=== PATIENT | female | born 1990 | race Caucasian/White ===

== ENCOUNTER → 2023-05-14 | Outpatient (CLI) | payer BC, SELFPAY ==
[2023-05-14 12:24] LABS: Absolute Lymphocyte Count 1.87 X10^3/uL (0.83-4.51); Absolute Neutrophil Count 3.3 X10^3/uL (2.0-7.7); Basophil# 0.03 X10^3/uL; Basophil% 0.5 % (0-1); Eosinophil# 0.13 X10^3/uL; Eosinophils% 2.2 % (0-5); Hematocrit 42.3 % (37-47); Hemoglobin 13.7 g/dL (12.0-15.0); Lymphocyte # 1.87 X10^3/ul (0.83-4.51); Lymphocyte % 32.4 % (19-41); Mean Corp Hgb Conc 32.4 g/dL (32-36); Mean Corpuscular Hgb 29.7 pg (27.0-32.0); Mean Corpuscular Volume 91.6 fL (81-99); Mean Platelet Vol. 10.2 fl (6.2-12.0); Monocyte# 0.44 X10^3/uL; Monocyte% 7.6 % (0-10); NRBC Flagged by Analyzer 0 % (0-5); Neutrophil # 3.29 X10^3/uL (2.7-7.7); Platelet Count 254 K/mm3 (150-450); RBC Distribution Width CV 12.4 % (11.6-14.6); RBC Distribution Width SD 40.7 fl (35.1-43.9); Red Blood Count 4.62 M/mm3 (4.2-5.4); White Blood Count 5.8 K/mm3 (4.4-11.0)
[2023-05-14 12:45] LABS: Hemoglobin A1c 4.6 % (3.8-5.6)
[2023-05-14 13:08] LABS: ALB/GLOB Ratio 1.4 RATIO (0.9-2.4); AST(SGOT) 11 U/L (15-37); Alanine Aminotransfer ALT/SGPT 21 U/L (13-56); Albumin, Serum 4.4 g/dL (3.2-5.0); Alkaline Phosphatase 57 U/L (45-117); Anion Gap 6 (5-15); BUN 18 mg/dL (7-18); BUN/Creat Ratio 27.6 RATIO (10-20); CRP, High Sensitivity Cardiac 0.49 mg/L; Calcium,Total 9.7 mg/dL (8.5-10.1); Chloride 108 mmol/L (98-107); Cholesterol 153 mg/dL (200); Creatinine, Serum 0.65 mg/dL (0.55-1.02); EST Glomerular Filtration Rate 110 mL/min (>60); Est Glom Filt Rate - Afr Amer 133 mL/min (>60); Globulin 3.2 g/dL (2.2-4.2); Glucose 81 mg/dL (74-106); High Density Lipoprotein 71 mg/dL; Potassium 4.3 mmol/L (3.5-5.1); Protein, Total 7.6 g/dL (6.4-8.2); Sodium Level 139 mmol/L (136-145); Thyroid Stim Hormone (TSH) 1.48 uIU/mL (0.358-3.74); Triglycerides 45 mg/dL; Very Low Density Lipoprotein 9 mg/dL (5-40)
== END | disposition home or self-care (01) ==
LOC: MFPLAB 10:13
PROVIDERS: PCP Family Medicine; Visit Provider Family Medicine
DX: Z00.00 Encounter for general adult medical examination without abnormal findings (principal); Z13.220 Encounter for screening for lipoid disorders; Z82.49 Family history of ischemic heart disease and other diseases of the circulatory system; Z13.0 Encounter for screening for diseases of the blood and blood-forming organs and certain disorders involving the immune mechanism; Z13.29 Encounter for screening for other suspected endocrine disorder; Z13.1 Encounter for screening for diabetes mellitus
CPT/HCPCS: 36415; 80053; 80061; 83036; 84443; 85025; 86141

== ENCOUNTER 2025-01-29 17:18 | Emergency (ER) | payer BC, SELFPAY ==
[2025-01-29] VITALS (13 sets, daily range): BP systolic 103–149; BP diastolic 77–87; PULSE 75–109; RESP 12–24; TEMP 36.6–36.9; O2SAT 98–100; BMI 20.1
--- NOTE | 2025-01-29 18:13 | EDS_ITS ---
HPI History of Present Illness Chief Complaint: Chest Pain Informant: patient Onset/Context/Timing Onset: Days Activity at onset: gradual Timing: Intermittent Quality: Positive for - (Pinching) Location: Left Chest and - (Left scapula and left arm) Worsened By: Nothing Relieved By: Nothing Associated Symptoms: Positive for Palpitations; Negative for Nausea, Vomiting, Diaphoresis, Dyspnea, Cough, Fever, Lightheadedness or Acid Reflux Narrative Narrative: Patient presents with chest pain that is being getting worse over the past couple days. Patient describes it as a pinching sensation. Patient states it comes and goes. Patient states it radiates into her left shoulder and left arm. Patient states nothing makes it worse and nothing makes it better. Patient admits to some palpitations. Patient denies any nausea or vomiting. Patient denies any shortness of breath or cough. Patient denies any fevers or chills. Patient is concerned because she has a family history of father who had an KS in his 40s. CVD Risk Factors: Positive for Family History 1' </=55; Negative for Hypertension, Diabetes, Hypercholesterolemia or Smoking PE Risk Factors: Negative for Recent Travel/Surgery, Recent Immobilization, Prior DVT or PE, Cancer or OCP + Smoking + >/=35 PFSH PFSH Medical History no medical history no medical history Allergy/AdvReac Type Severity Reaction Status Date / Time No Known Allergies Allergy Verified 01/29/25 17:20 Surgical History no surgical history no surgical history Social History Smoking Status: Never smoker [facility] ED Constitutional Constitutional ED: Denies chills or fever(s) Eyes Eyes: Denies blurry vision or change in vision ENT ENT ED: Denies rhinorrhea or sore throat Cardiovascular Cardiovascular: Reports chest pain and palpitations Respiratory/Chest Respiratory/Chest: Denies cough or dyspnea Gastrointestinal Gastrointestinal: Denies nausea or vomiting Genitourinary Genitourinary ED: Denies dysuria or hematuria Musculoskeletal Musculoskeletal: Reports back pain; Denies neck pain Integumentary Denies abscess or rash Neurologic Neurologic: Denies headache(s) or weakness Allergic/Immunologic Allergic/Immunologic ED: Denies mouth swelling or urticaria EXAM Physical Exam Const Vital Signs: 01/29/25 17:19 01/29/25 17:51 01/29/25 18:00 Temperature 98.4 F Temperature Source Temporal Pulse Rate 109 H 83 75 Respiratory Rate 16 12 15 Blood Pressure 149/82 H 103/78 Blood Pressure Mean 104 88 Pulse Ox 100 100 100 Oxygen Delivery Method Room Air Room Air 01/29/25 18:15 01/29/25 18:19 01/29/25 18:30 Temperature Temperature Source Pulse Rate 86 77 Respiratory Rate 24 H 12 Blood Pressure 111/87 H Blood Pressure Mean 96 Pulse Ox 99 100 Oxygen Delivery Method Room Air Room Air 01/29/25 18:45 01/29/25 19:00 01/29/25 19:00 Temperature Temperature Source Pulse Rate 84 89 89 Respiratory Rate 16 14 14 Blood Pressure 119/86 H Blood Pressure Mean 96 Pulse Ox 100 98 Oxygen Delivery Method Room Air 01/29/25 19:15 01/29/25 19:38 01/29/25 19:45 Temperature Temperature Source Pulse Rate 90 88 89 Respiratory Rate 12 14 12 Blood Pressure Blood Pressure Mean Pulse Ox 100 100 99 Oxygen Delivery Method 01/29/25 20:00 01/29/25 21:00 Temperature Temperature Source Pulse Rate 79 83 Respiratory Rate 12 12 Blood Pressure 112/82 H 107/77 Blood Pressure Mean 92 87 Pulse Ox 98 100 Oxygen Delivery Method Room Air Positive well nourished and well developed Constitutional Narrative: BMI 20.1 General Appearance ED: well developed and NAD HEENT Reports moist mucous membranes Neck supple and no JVD Chest Wall palpation of chest normal Resp normal respiratory effort and clear to auscultation bilaterally Cardio regular rate and regular rhythm GI soft to palpation, non-tender and non-distended Neuro oriented x3, CN's II-XII intact bilaterally and no sensory deficits noted Sensorium / Orientation: awake and alert Motor Exam: strength 5/5 throughout Psych mental status grossly normal Heart Score History: Slightly/Non-Suspicious ECG: Normal Age: </= 45 years Risk Factors: 1 or 2 Risk Factors Troponin: </= Normal Limit Score: 1 MDM MDM MDM Narrative Medical decision making narrative: Differential diagnosis includes cardiac dysrhythmia, cardiac ischemia, pneumonia, bronchitis, pneumothorax, electrolyte abnormality, gastroesophageal reflux disease, and anxiety. EKG will be obtained to assess for cardiac dysrhythmia and cardiac ischemia. Chest x-ray will be obtained to assess for pneumonia and bronchitis and pneumothorax. CBC will be obtained to assess for leukocytosis and anemia. Basic metabolic profile will be obtained to assess for electrolyte abnormality and renal function. High-sensitivity troponin will be obtained to assess for cardiac ischemia. 2-hour repeat high-sensitivity troponin will be obtained to assess for ongoing cardiac ischemia. Lab Data Attestation: I reviewed the patient's lab results. Lab results narrative: CBC was reviewed and was within normal limits. Basic metabolic profile was reviewed. Potassium is slightly low at 3.2. The remainder is within normal limits. Initial high-sensitivity troponin was reviewed and was less than 6. 2- hour repeat high-sensitivity troponin was reviewed and was less than 6. Labs: Laboratory Results - last 24 hr 01/29/25 01/29/25 17:50 20:17 WBC 6.3 RBC 4.49 Hgb 13.6 Hct 39.9 MCV 88.9 MCH 30.3 MCHC 34.1 RDW Std Deviation 40.0 RDW Coeff of Toby 12.3 Plt Count 255 MPV 9.7 Immature Gran % (Auto) 0.200 Neut % (Auto) 52.2 Lymph % (Auto) 37.5 [place] % (Auto) 8.0 Eos % (Auto) 1.6 Baso % (Auto) 0.5 Absolute Neuts (auto) 3.3 Absolute Lymphs (auto) 2.35 Nucleated RBC % 0 Sodium 140 Potassium 3.2 L Chloride 105 Carbon Dioxide 19.9 L Anion Gap 15 BUN 12 Creatinine 0.69 L Estim Creat Clear Calc 88.78 Est GFR (MDRD) Non-Af 115 BUN/Creatinine Ratio 18.0 Glucose 102 H Calcium 9.4 Troponin T High Sens < 6 Troponin T Hi Sens 2 Hr < 6 Radiography Chest X-Ray - ED: 1 View, Read by ED Physician, Read by Radiologist and No Acute Disease Diagnostic Testing: Clinical Impression(s) from Imaging Studies Chest X-Ray 01/29/25 18:20 IMPRESSION: No Acute Findings. Reading Location: [facility] Portable 1 view chest x-ray was obtained. On my independent interpretation, lung coronel are clear. There is normal cardiac silhouette. Bony thorax is normal. There is no acute process noted. Radiologist also interpreted the x- ray and agrees. EKG Initial EKG: Attestation: I personally reviewed and interpreted this EKG as follows: Interpretation: Sinus Rhythm and No Acute Injury Pattern Comments: EKG was obtained. On my independent interpretation, it showed a normal sinus rhythm with a rate of 80. [place] interval, QRS interval, and QTc i ntervals were all normal. [place] was normal. There are no acute ST or T wave changes. Prior EKG tracings: not available for review Prior: No Prior Treatment and Re-Evaluation :: Patient was given aspirin here. Patient was feeling better evaluation. Patient was advised of her findings. Patient has a HEART score of 1. Patient was advised that this is low risk for acute cardiac event. Patient was instructed to take Tylenol or ibuprofen as needed for pain. Patient was instructed to follow-up with her primary care physician in 5 to 7 days. Patient understood and was agreeable with the plan. All questions were answered. Discharge Plan Triage Chief Complaint: Chest Pain ED Provider: Bubba De Anda Dx/Rx/DC Orders Clinical Impression: Chest pain of uncertain etiology, Elevated blood pressure reading Instructions: ED Chest Pain, Uncertain Cause Primary Care Provider: Pamella Bowman Referrals: Pamella Bowman MD [Primary Care Provider] - 5-7 Days Print Language: [place] Citizen Disposition Disposition: Home, Self Care
--- NOTE | 2025-01-29 18:13 | EKG12_ITS ---
Test Reason : CP Blood Pressure : */* mmHG Vent. Rate : 80 BPM Atrial Rate : 80 BPM P-R Int : 142 ms QRS Dur : 92 ms QT Int : 388 ms P-R-T Axes : 80 83 79 degrees QTcB Int : 447 ms Normal sinus rhythm with sinus arrhythmia Normal ECG Confirmed by ALVINO CHAUDHRY, WYATT ([id number]), development editor NICKY ABREU ([id number]) on 01/30/2025 8:10:37 AM Referred By: Confirmed By: WYATT DE OLIVEIRA MD
--- NOTE | 2025-01-29 18:20 | RAD_ITS ---
PROCEDURE: CHEST 1 VIEW (PORTABLE) 01/29/2025 REASON FOR EXAM: CHEST PAIN TECHNIQUE: Frontal view of the chest. COMPARISON: None FINDINGS: Hardware: None Heart: The heart size is normal. Lungs: No significant change in the appearance of the lungs. Bones: The bones are unremarkable. Other: RAD/Chest 1 View (Portable) IMPRESSION: No Acute Findings. Reading Location: [facility]
[2025-01-29 18:23] LABS: Absolute Lymphocyte Count 2.35 X10^3/uL (0.83-4.51); Absolute Neutrophil Count 3.3 X10^3/uL (2.0-7.7); Basophil# 0.03 X10^3/uL; Basophil% 0.5 % (0-1); Eosinophils% 1.6 % (0-5); Hematocrit 39.9 % (37-47); Hemoglobin 13.6 g/dL (12.0-15.0); Lymphocyte # 2.35 X10^3/ul (0.83-4.51); Lymphocyte % 37.5 % (19-41); Mean Corp Hgb Conc 34.1 g/dL (32-36); Mean Corpuscular Hgb 30.3 pg (27.0-32.0); Mean Corpuscular Volume 88.9 fL (81-99); Mean Platelet Vol. 9.7 fl (6.2-12.0); NRBC Flagged by Analyzer 0 % (0-5); Neutrophil # 3.27 X10^3/uL (2.7-7.7); Neutrophil % 52.2 % (47-70); Platelet Count 255 K/mm3 (150-450); RBC Distribution Width CV 12.3 % (11.6-14.6); Red Blood Count 4.49 M/mm3 (4.2-5.4); White Blood Count 6.3 K/mm3 (4.4-11.0)
[2025-01-29] MEDS: Aspirin 81 MG TAB.CHEW 324 MG PO (18:25)
[2025-01-29 18:53] LABS: Anion Gap 15 (5-15); BUN 12 mg/dL (4-19); Calcium,Total 9.4 mg/dL (7.6-11.0); Carbon Dioxide 19.9 mmol/L (21.0-32.0); Chloride 105 mmol/L (98-108); Creatinine, Serum 0.69 mg/dL (0.70-1.20); EST Glomerular Filtration Rate 115 (>60); Estimated Creatinine Clearance 88.78 ml/min (50-250); Glucose 102 mg/dL (70-99); Potassium 3.2 mmol/L (3.3-5.1); Sodium Level 140 mmol/L (133-145); Troponin T High Sensitivity < 6 ng/L (<=14)
[2025-01-29 20:55] LABS: Troponin T High Sens 2 HR < 6 ng/L (<=14)
== END 2025-01-29 21:19 | disposition home or self-care (01) ==
PROVIDERS: Emergency Provider Emergency Medicine; PCP Family Medicine; Visit Provider Emergency Medicine
DX: R07.9 Chest pain, unspecified (principal); R03.0 Elevated blood-pressure reading, without diagnosis of hypertension; R00.2 Palpitations; M79.602 Pain in left arm; M25.512 Pain in left shoulder; M54.9 Dorsalgia, unspecified; Z82.49 Family history of ischemic heart disease and other diseases of the circulatory system
CPT/HCPCS: 71045; 80048; 84484; 85025; 93005; 99284; A4216

== ENCOUNTER → 2025-02-09 | Outpatient (CLI) | payer BC, SELFPAY ==
[2025-02-09 10:52] LABS: Anion Gap 11 (5-15); BUN 17 mg/dL (4-19); BUN/Creat Ratio 24.2 RATIO (10-20); Calcium,Total 9.8 mg/dL (7.6-11.0); Carbon Dioxide 25.4 mmol/L (21.0-32.0); Chloride 103 mmol/L (98-108); Cholesterol 168 mg/dL (<=200); Creatinine, Serum 0.72 mg/dL (0.70-1.20); EST Glomerular Filtration Rate 112 (>60); Glucose 90 mg/dL (70-99); High Density Lipoprotein 70 mg/dL; Low Density Lipoprotein Calc. 90 mg/dL; Potassium 4.3 mmol/L (3.3-5.1); Sodium Level 140 mmol/L (133-145); Triglycerides 38 mg/dL; Very Low Density Lipoprotein 8 mg/dL (5-40)
== END | disposition home or self-care (01) ==
LOC: MTLAB 08:44
PROVIDERS: PCP Family Medicine; Referring Provider Nurse Practitioner Family; Visit Provider Nurse Practitioner Family
DX: Z13.1 Encounter for screening for diabetes mellitus (principal); Z13.220 Encounter for screening for lipoid disorders
CPT/HCPCS: 36415; 80048; 80061

== ENCOUNTER → 2025-10-21 | Outpatient (CLI) | payer BC, SELFPAY ==
--- OUTSIDE RECORDS SUMMARY | 2025-10-21 12:04 | XMS RPT_ITS | CCD ---
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 Bubba De Anda DO Emergency Provider Pamella Bowman MD Primary Care Provider Dr. Bubba De Anda DO Attending Provider Tian TURN OUT-C, Vandana Attending Provider [phone] Tian TURN OUT-C, Vandana Referring Provider [phone] Tian TURN OUT, Vandana Referring Unavailable Tian TURN OUT, Vandana Attending Unavailable Pamella Bowman Primary Care Unavailable Bubba De Anda Attending Unavailable Pamella Bowman Primary [facility] Unavailable Allergies Allergy Classification Reported Allergen(s) Allergy Type Date of Onset Reaction(s) Facility (1 source) Amoxicillin Drug Allergy 06-16-2025 [facility] Repository (1 source) Clavulanate Drug Allergy 06-16-2025 [facility] Repository Problems Problem Classification Problem Date Documented Da te Episodic/Chronic Nonspecific chest pain (3 sources) Chest pain; Translations: [Chest pain, unspecified] Onset: 06-15-2025 01-29-2025 Episodic Other circulatory disease (2 sources) Elevated blood pressure; Translations: [Elevated blood-pressure reading, without diagnosis of hypertension] 01-29-2025 Episodic Other screening for suspected conditions (not mental disorders or infectious disease) (1 source) Encounter for screening for diabetes mellitus; Translations: [Encounter for screening for diabetes mellitus] Onset: 06-16-2025 Episodic Results Test Name Value Interpretation Reference Range Facility Anion gap in Serum or Plasma Ordered By: Vandana Overton on 02-09-2025 Anion gap [Moles/Vol] 11 mmol/L - [facility] BUN/creatinine ratioOrdered By: Vandana Overton on 02-09-2025 Urea nitrogen/Creatinine [Mass ratio] 24.2 mg/mg High - [facility] Basic Metabolic Profile (BMP )on 02-09-2025 BUN/CRE 24.2 RATIO High -20 [facility] Comment on above: Performed By: #### L 500.2500, L500.4100 #### [facility] [address] [place], [address] Calcium [Mass/Vol] 9.8 mg/dL Normal 7.6-11.0 [facility] Comment on above: Performed By: #### L 500.2500, L500.4100 #### [facility] [address] [place], [address] Chloride [Moles/Vol] 103 mmol/L Normal 98-108 [facility] Comment on above: Performed By: #### L 500.2500, L500.4100 #### [facility] [address] [place], [address] CO2 [Moles/Vol] 25.4 mmol/L Normal 21.0-32.0 [facility] Comment on above: Performed By: #### L 500.2500, L500.4100 #### [facility] [address] [place], [address] Creatinine [Mass/Vol] 0.72 mg/dL Normal 0.70-1.20 [facility] Comment on above: Performed By: #### L 500.2500, L500.4100 #### [facility] [address] [place], [address] GAP 11 Normal 5-15 [facility] Comment on above: Performed By: #### L 500.2500, L500.4100 #### [facility] [address] [place], [address] GFR/1.73 sq M.predicted among non-blacks MDRD (S/P/Bld) [Vol rate/Area] 112 mL/min/{1.73_m2} Normal >60 [facility] Comment on above: Result Comment: mL/m in/1.73m2 CKD-EPI Creatinine Equation (2020) Performed By: #### L 500.2500, L500.4100 #### [facility] [address] [place], [address] Glucose [Mass/Vol] 90 mg/dL Normal 70-99 [facility] Comment on above: Performed By: #### L 500.2500, L500.4100 #### [facility] [address] [place], [address] Potassium [Moles/Vol] 4.3 mmol/L Normal 3.3-5.1 [facility] Comment on above: Performed By: #### L 500.2500, L500.4100 #### [facility] [address] [place], [address] Sodium [Moles/Vol] 140 mmol/L Normal 133-145 [facility] Comment on above: Performed By: #### L 500.2500, L500.4100 #### [facility] [address] [place], [address] Urea nitrogen [Mass/Vol] 17 mg/dL Normal 4-19 [facility] Comment on above: Performed By: #### L 500.2500, L500.4100 #### [facility] [address] [place], [address] Calculated very low density lipoprotein (VLDL) cholesterol measurementOrdered By: Vandana Overton on 02-09-2025 VLDL Cholesterol 8 mg/dL 5-40 [facility] Carbon dioxide, total [Moles /volume] in Central venous bloodOrdered By: Vandana Overton on 02-09-2025 CO2 [Moles/Vol] 25.4 mmol/L 21.0-32.0 [facility] Chloride assayOrdered By: Stefan Overton on 02-09-2025 Chloride [Moles/Vol] 103 mmol/L 98-108 [facility] GFR/1.73 sq M.predicted jessica g non-blacks MDRD (S/P/Bld) [Vol rate/Area]Ordered By: Vandana Overton on 02-09-2025 Estimated GFR (MDRD) Non-Af Amer 112 >60 [facility] Comment on above: mL/min/1.73m2 CKD-EP I Creatinine Equation (2020) LDL calc ser/plasOrdered By: Vandana Overton on 02-09-2025 LDL Cholesterol, Calculated 90 mg/dL [facility] Comment on above: Cfuiwiqeoc=948-505 m g/dL & Higher Pkez=438 mg/dL or greater Lipid Profileon 02-09-2025 CHOL:HDL 2.40 Normal [facility] Comment on above: Performed By: #### L 500.2500, L500.4100 #### [facility] [address] [place], [address] Cholesterol [Mass/Vol] 168 mg/dL Normal <=200 [facility] Comment on above: Result Comment: Chol esterol level, Desirable <200 mg/dL Borderline high cholesterol 200-239 mg/dL High cholesterol >=240 mg/dL Recommendations of the NCEP Adult Treatment Panel for the following risk-cutoff thresholds for the [place] population. Performed By: #### L 500.2500, L500.4100 #### [facility] [address] [place], [address] Cholesterol in HDL [Mass/Vol] 70 mg/dL Normal [facility] Comment on above: Result Comment: Concepcion onal Cholesterol Education Program (NCEP) guidelines: <40 mg/dL: Low HDL-cholesterol (major risk factor for CHD) >= 60 mg/dL: High HDL-cholesterol (negative risk factor for CHD) HDL-cholesterol is affected by a number of factors, e.g. smoking, exercise, hormones, sex and age. Performed By: #### L 500.2500, L500.4100 #### [facility] [address] [place], [place], [id number] (613) Cholesterol in LDL [Mass/Vol] 90 mg/dL Normal [facility] Comment on above: Result Comment: Bord harjxz=641-317 mg/dL Higher Exzz=049 mg/dL or greater Performed By: #### L 500.2500, L500.4100 #### [facility] [address] [place], [address] Cholesterol in VLDL [Mass/Vol] 8 mg/dL Normal 5-40 [facility] Comment on above: Performed By: #### L 500.2500, L500.4100 #### [facility] [address] [place], [address] Triglyceride [Mass/Vol] 38 mg/dL Normal [facility] Comment on above: Result Comment: The drugs N-Acetylcysteine and Metamizole may falsely depress this assay. Normal range: <150 mg/dL Borderline High: 150-199 mg/dL High: 200-499 mg/dL Very High: >500 mg/dL Performed By: #### L 500.2500, L500.4100 #### [facility] [address] [place], [address] Potassium (Unsp spec) [Mass/ Vol]Ordered By: Vandana Overton on 02-09-2025 Potassium [Moles/Vol] 4.3 mmol/L 3.3-5.1 [facility] Screening total cholesterol/ high density lipoprotein (HDL) cholesterol ratioOrdered By: Vandana Overton on 02-09-2025 Cholesterol.total/Cholest lexie in HDL [Mass ratio] 2.40 {ratio} [facility] Serum creatinine measurement (mass/volume)Ordered By: Vandana Overton on 02-09-2025 Creatinine [Mass/Vol] 0.72 mg/dL 0.70-1.20 [facility] Serum glucose measurement (m ass/volume)Ordered By: Vandana Overton on 02-09-2025 Glucose [Mass/Vol] 90 mg/dL 70-99 [facility] Serum or plasma calcium kimi urement (mass/volume)Ordered By: Vandana Overton on 02-09-2025 Calcium [Mass/Vol] 9.8 mg/dL 7.6-11.0 [facility] Serum or plasma cholesterol in HDL measurement (mass/volume)Ordered By: Vandana Overton on 02-09-2025 Cholesterol in HDL [Mass/Vol] 70 mg/dL >40 [facility] Comment on above: National Cholesterol Education Program (NCEP) guidelines:<40 mg/dL: Low HDL-cholesterol (major risk factor for CHD)>= 60 mg/dL: High HDL-cholesterol (negative risk factor for CHD)HDL-cholesterol is affected by a number of factors, e.g. smoking, exercise, hormones, sex and age. Serum or plasma cholesterol measurement (mass/volume)Ordered By: Vandana Overton on 02-09-2025 Cholesterol [Mass/Vol] 168 mg/dL <201 [facility] Comment on above: Cholesterol level, D esirable <200 mg/dLBorderline high cholesterol 200-239 mg/dLHigh cholesterol >=240 mg/dLRecommendations of the NCEP Adult Treatment Panel for the following risk-cutoff thresholds for the [place] population. Serum or plasma urea nitroge n measurement (mass/volume)Ordered By: Vandana Overton on 02-09-2025 Urea nitrogen [Mass/Vol] 17 mg/dL 4-19 [facility] Sodium levelOrdered By: Vandana Overton on 02-09-2025 Sodium [Moles/Vol] 140 mmol/L 133-145 [facility] Triglycerides measurementOrd ered By: Vandana Overton on 02-09-2025 Triglyceride [Mass/Vol] 38 mg/dL <199 [facility] Comment on above: The drugs N-Acetylcy steine and Metamizole may falsely depress this assay. Normal range: <150 mg/dLBorderline High: 150-199 mg/dLHigh: 200-499 mg/dLVery High: >500 mg/dL 12 Lead EKGon 01-29-2025 12 Lead EKG [facility] Cardiovascular Services [address] [place] [address] 12 Lead EKG 01/29/25 1632 MR#: [id number] Acct: [id number] Name: MEAGAN CARLTON Rep #: [id number] : 1990 34 From: Misael De Oliveira MD Attending Dr: Status: DEP ER Ordering Dr: Bubba De Anda DO Date: 01/29/25 Location: ED Sex: F C Admitted: Test Reason : CP Blood Pressure : */* mmHG Vent. Rate : 80 BPM Atrial Rate : 80 BPM P-R Int : 142 ms QRS Dur : 92 ms QT Int : 388 ms P-R-T Axes : 80 83 79 degrees QTcB Int : 447 ms Normal sinus rhythm with sinus arrhythmia Normal ECG Confirmed by MISAEL DE OLIVEIRA MD ([id number]), research editor NICKY ABREU ([id number]) on 01/30/2025 8:10:37 AM Referred By: Confirmed By: MISAEL DE OLIVEIRA MD 01/30/25 0810 Date Misael De Oliveira MD CC: Dr. Pamella Bowman MD; Dr. Bubba De Anda DO Signed Normal [facility] Absolute neutrophil countOrd ered By: Bubba De Anda on 01-29-2025 Neutrophils (Bld) [#/Vol] 3.3 10*3/uL 2.0-7.7 [facility] Anion gap in Serum or Plasma Ordered By: Bubba De Anda on 01-29-2025 Anion gap [Moles/Vol] 15 mmol/L 03-26 [facility] BUN/creatinine ratioOrdered By: Bubba De Anda on 01-29-2025 Urea nitrogen/Creatinine [Mass ratio] 18.0 mg/mg 08-31 [facility] Basic Metabolic Profile (BMP )on 01-29-2025 BUN/CRE 18.0 RATIO Normal 08-31 [facility] Comment on above: Performed By: #### L 100.0100, L500.2500, L501.4021 #### [facility] [address] [place], [address] Calcium [Mass/Vol] 9.4 mg/dL Normal 7.6-11.0 [facility] Comment on above: Performed By: #### L 100.0100, L500.2500, L501.4021 #### [facility] [address] [place], [address] Chloride [Moles/Vol] 105 mmol/L Normal 98-108 [facility] Comment on above: Performed By: #### L 100.0100, L500.2500, L501.4021 #### [facility] [address] [place], [address] CO2 [Moles/Vol] 19.9 mmol/L Low 21.0-32.0 [facility] Comment on above: Performed By: #### L 100.0100, L500.2500, L501.4021 #### [facility] [address] [place], [address] Creatinine [Mass/Vol] 0.69 mg/dL Low 0.70-1.20 [facility] Comment on above: Performed By: #### L 100.0100, L500.2500, L501.4021 #### [facility] [address] [place], [address] ECRCL 88.78 ml/min Normal 50-250 [facility] Comment on above: Performed By: #### L 100.0100, L500.2500, L501.4021 #### [facility] [address] [place], [address] GAP 15 Normal 5-15 [facility] Comment on above: Performed By: #### L 100.0100, L500.2500, L501.4021 #### [facility] [address] [place], [address] GFR/1.73 sq M.predicted among non-blacks MDRD (S/P/Bld) [Vol rate/Area] 115 mL/min/{1.73_m2} Normal >60 [facility] Comment on above: Result Comment: mL/m in/1.73m2 CKD-EPI Creatinine Equation (2020) Performed By: #### L 100.0100, L500.2500, L501.4021 #### [facility] [address] [place], [address] Glucose [Mass/Vol] 102 mg/dL High 70-99 [facility] Comment on above: Performed By: #### L 100.0100, L500.2500, L501.4021 #### [facility] [address] [place], [address] Potassium [Moles/Vol] 3.2 mmol/L Low 3.3-5.1 [facility] Comment on above: Performed By: #### L 100.0100, L500.2500, L501.4021 #### [facility] [address] [place], [address] Sodium [Moles/Vol] 140 mmol/L Normal 133-145 [facility] Comment on above: Performed By: #### L 100.0100, L500.2500, L501.4021 #### [facility] [address] [place], [address] Urea nitrogen [Mass/Vol] 12 mg/dL Normal 4-19 [facility] Comment on above: Performed By: #### L 100.0100, L500.2500, L501.4021 #### [facility] [address] [place], [address] Basophil percentageOrdered B y: Bubba De Anda on 01-29-2025 Basophils/100 WBC (Bld) 0.5 % 0-1 [facility] CBC W/Diff, Automatedon 03-2 0 Absolute Lymph 2.35 X10 3/uL Normal 0.83-4.51 [facility] Comment on above: Performed By: #### L 100.0100, L500.2500, L501.4021 #### [facility] [address] [place], [address] Absolute Neut 3.3 X10 3/uL Normal 2.0-7.7 [facility] Comment on above: Performed By: #### L 100.0100, L500.2500, L501.4021 #### [facility] [address] [place], [address] Basophils/100 WBC (Bld) 0.5 % Normal 0-1 [facility] Comment on above: Performed By: #### L 100.0100, L500.2500, L501.4021 #### [facility] [address] [place], [address] Eosinophils/100 WBC (Bld) 1.6 % Normal 0-5 [facility] Comment on above: Performed By: #### L 100.0100, L500.2500, L501.4021 #### [facility] [address] [place], [address] Erythrocyte distribution width (RBC) [Ratio] 12.3 % Normal 11.6-14.6 [facility] Comment on above: Performed By: #### L 100.0100, L500.2500, L501.4021 #### [facility] [address] [place], [address] Hematocrit (Bld) [Volume fraction] 39.9 % Normal 37-47 [facility] Comment on above: Performed By: #### L 100.0100, L500.2500, L501.4021 #### [facility] [address] [place], [address] Hemoglobin (Bld) [Mass/Vol] 13.6 g/dL Normal 12.0-15.0 [facility] Comment on above: Performed By: #### L 100.0100, L500.2500, L501.4021 #### [facility] [address] [place], [address] IG% 0.200 Normal 0.0-0.9 [facility] Comment on above: Result Comment: IG% - Immature Granulocytes (promyelocytes, myelocytes and metamyelocytes) > 1% indicates that a LEFT SHIFT is Present. Performed By: #### L 100.0100, L500.2500, L501.4021 #### [facility] [address] [place], [address] Lymphocytes/100 WBC (Bld) 37.5 % Normal 19-41 [facility] Comment on above: Performed By: #### L 100.0100, L500.2500, L501.4021 #### [facility] [address] [place], [address] MCH (RBC) [Entitic mass] 30.3 pg Normal 27.0-32.0 [facility] Comment on above: Performed By: #### L 100.0100, L500.2500, L501.4021 #### [facility] [address] [place], [address] MCHC (RBC) [Mass/Vol] 34.1 g/dL Normal 32-36 [facility] Comment on above: Performed By: #### L 100.0100, L500.2500, L501.4021 #### [facility] [address] [place], [address] MCV (RBC) [Entitic vol] 88.9 fL Normal 81-99 [facility] Comment on above: Performed By: #### L 100.0100, L500.2500, L501.4021 #### [facility] [address] [place], [address] Monocytes/100 WBC (Bld) 8.0 % Normal 0-10 [facility] Comment on above: Performed By: #### L 100.0100, L500.2500, L501.4021 #### [facility] [address] [place], [address] Neutrophils/100 WBC (Bld) 52.2 % Normal 47-70 [facility] Comment on above: Performed By: #### L 100.0100, L500.2500, L501.4021 #### [facility] [address] [place], [address] Nucleated RBC (Bld) [#/Vol] 0 10*3/uL Normal 0-5 [facility] Comment on above: Performed By: #### L 100.0100, L500.2500, L501.4021 #### [facility] [address] [place], [address] Platelet mean volume (Bld) [Entitic vol] 9.7 fL Normal 6.2-12.0 [facility] Comment on above: Performed By: #### L 100.0100, L500.2500, L501.4021 #### [facility] [address] [place], [address] Platelets (Bld) [#/Vol] 255 10*3/uL Normal 150-450 [facility] Comment on above: Performed By: #### L 100.0100, L500.2500, L501.4021 #### [facility] [address] [place], [address] RBC (Bld) [#/Vol] 4.49 10*6/uL Normal 4.2-5.4 [place] Comment on above: Performed By: #### L 100.0100, L500.2500, L501.4021 #### [facility] [address] [place], [address] RDW SD 40.0 fl Normal 35.1-43.9 [facility] Comment on above: Performed By: #### L 100.0100, L500.2500, L501.4021 #### [facility] [address] [place], [address] WBC (Bld) [#/Vol] 6.3 10*3/uL Normal 4.4-11.0 [facility] Comment on above: Performed By: #### L 100.0100, L500.2500, L501.4021 #### [facility] [address] [place], [address] Carbon dioxide, total [Moles /volume] in Central venous bloodOrdered By: Bubba De Anda on 01-29-2025 CO2 [Moles/Vol] 19.9 mmol/L Low 21.0-32.0 [facility] Chest 1 View (Portable)on Chest 1 View (Portable) [facility] Imaging Services [address] [place] [address] Chest 1 View (Portable) MR#: [id number] Acct: [id number] Name: MEAGAN CARLTON Rep #: [id number] : 1990 F 34 From: Rodrick burris MD PCP: Dr. Pamella Bowman MD Status: REG ER Study: Chest 1 View (Portable) Date of Exam: 01/29/25 Exam# [id number] Ordering Dr: Bubba De Anda DO PROCEDURE: CHEST 1 VIEW (PORTABLE) 01/29/2025 REASON FOR EXAM: CHEST PAIN TECHNIQUE: Frontal view of the chest. COMPARISON: None FINDINGS: Hardware: None Heart: The heart size is normal. Lungs: No significant change in the appearance of the lungs. Bones: The bones are unremarkable. Other: RAD/Chest 1 View (Portable) IMPRESSION: No Acute Findings. Reading Location: [facility] CC: Dr. Pamella Bowman MD; Dr. Bubba De Anda DO Animal Taxonomist: Signed Normal [facility] Chloride assayOrdered By: Stefan De Anda on 01-29-2025 Chloride [Moles/Vol] 105 mmol/L 98-108 [facility] Emergency Department Summary on 01-29-2025 Emergency Department Summary [facility] Medical Records Department [address] [place] [address] Emergency Department Summary 01/29/25 MR#: [id number] Acct: [id number] Name: MEAGAN CARLTON Rep #: [id number] : 1990 34 From: Bubba De Anda DO PCP: Dr. Pamella Bowman MD Status:DEP ER Location: ED HPI History of Present Illness Chief Complaint: Chest Pain Informant: patient Onset/Context/Timin g Onset: Days Activity at onset: gradual Timing: Intermittent Quality: Positive for - (Pinching) Location: Left Chest and - (Left scapula and left arm) Worsened By: Nothing Relieved By: Nothing Associated Symptoms: Positive for Palpitations; Negative for Nausea, Vomiting, Diaphoresis, Dyspnea, Cough, Fever, Lightheadedness or Acid Reflux Narrative Narrative: Patient presents with chest pain that is being getting worse over the past couple days. Patient describes it as a pinching sensation. Patient states it comes and goes. Patient states it radiates into her left shoulder and left arm. Patient states nothing makes it worse and nothing makes it better. Patient admits to some palpitations. Patient denies any nausea or vomiting. Patient denies any shortness of breath or cough. Patient denies any fevers or chills. Patient is concerned because she has a family history of father who had an NE in his 40s. CVD Risk Factors: Positive for Family History 1' Hypercholesterolemi a or Smoking PE Risk Factors: Negative for Recent Travel/Surgery, Recent Immobilization, Prior DVT or PE, Cancer or OCP + Smoking + >/=35 PFSH PFSH Medical History no medical history no medical history Allergy/AdvReac Type Severity Reaction Status Date / Time No Known Allergies Allergy Verified 01/29/25 17:20 Surgical History no surgical history no surgical history Social History Smoking Status: Never smoker ROS ROS ED Constitutional Constitutional ED: Denies chills or fever(s) Eyes Eyes: Denies blurry vision or change in vision ENT ENT ED: Denies rhinorrhea or sore throat Cardiovascular Cardiovascular: Reports chest pain and palpitations Respiratory/Chest Respiratory/Chest: Denies cough or dyspnea Gastrointestinal Gastrointestinal: Denies nausea or vomiting Genitourinary Genitourinary ED: Denies dysuria or hematuria Musculoskeletal Musculoskeletal: Reports back pain; Denies neck pain Integumentary Denies abscess or rash Neurologic Neurologic: Denies headache(s) or weakness Allergic/Immunologi c Allergic/Immunologi c ED: Denies mouth swelling or urticaria EXAM Physical Exam Const Vital Signs: 01/29/25 17:19 01/29/25 17:51 01/29/25 18:00 Temperature 98.4 F Temperature Source Temporal Pulse Rate 109 H 83 75 Respiratory Rate 16 12 15 Blood Pressure 149/82 H 103/78 Blood Pressure Mean 104 88 Pulse Ox 100 100 100 Oxygen Delivery Method Room Air Room Air 01/29/25 18:15 01/29/25 18:19 01/29/25 18:30 Temperature Temperature Source Pulse Rate 86 77 Respiratory Rate 24 H 12 Blood Pressure 111/87 H Blood Pressure Mean 96 Pulse Ox 99 100 Oxygen Delivery Method Room Air Room Air 01/29/25 18:45 01/29/25 19:00 01/29/25 19:00 Temperature Temperature Source Pulse Rate 84 89 89 Respiratory Rate 16 14 14 Blood Pressure 119/86 H Blood Pressure Mean 96 Pulse Ox 100 98 Oxygen Delivery Method Room Air 01/29/25 19:15 01/29/25 19:38 01/29/25 19:45 Temperature Temperature Source Pulse Rate 90 88 89 Respiratory Rate 12 14 12 Blood Pressure Blood Pressure Mean Pulse Ox 100 100 99 Oxygen Delivery Method 01/29/25 20:00 01/29/25 21:00 Temperature Temperature Source Pulse Rate 79 83 Respiratory Rate 12 12 Blood Pressure 112/82 H 107/77 Blood Pressure Mean 92 87 Pulse Ox 98 100 Oxygen Delivery Method Room Air Positive well nourished and well developed Constitutional Narrative: BMI 20.1 General Appearance ED: well developed and NAD HEENT Reports moist mucous membranes Neck supple and no JVD Chest Wall palpation of chest normal Resp normal respiratory effort and clear to auscultation bilaterally Cardio regular rate and regular rhythm GI soft to palpation, non-tender and non-distended Neuro oriented x3, CN's II-XII intact bilaterally and no sensory deficits noted Sensorium / Orientation: awake and alert Motor Exam: strength 5/5 throughout Psych mental status grossly normal Heart Score History: Slightly/Non-Suspic ious ECG: Normal Age: Risk Factors: 1 or 2 Risk Factors Troponin: Score: 1 MDM MDM MDM Narrative Medical decision making narrative: Differential diagnosis includes cardiac dysrhythmia, cardiac ischemia, pneumonia, (more content not included)... Normal [facility] Eosinophil percentageOrdered By: Bubba De Anda on 01-29-2025 Eosinophils/100 WBC (Bld) 1.6 % 0-5 [facility] Erythrocyte distribution wid th ratioOrdered By: Bubba De Anda on 01-29-2025 Erythrocyte distribution width (RBC) [Ratio] 12.3 % 11.6-14.6 [facility] Erythrocyte distribution wid th standard deviationOrdered By: Bubba De Anda on 01-29-2025 Erythrocyte distribution width (RBC) [Entitic vol] 40.0 fL 35.1-43.9 [facility] Estimation of creatinine nir aranceOrdered By: Bubba De Anda on 01-29-2025 Estimated Creatinine Clearance Calc 88.78 ml/min 50-250 [facility] GFR/1.73 sq M.predicted jessica g non-blacks MDRD (S/P/Bld) [Vol rate/Area]Ordered By: Bubba De Anda on 01-29-2025 Estimated GFR (MDRD) Non-Af Amer 115 >60 [facility] Comment on above: mL/min/1.73m2 CKD-EP I Creatinine Equation (2020) Hematocrit Auto (Bld) [Volum e fraction]Ordered By: Bubba De Anda on 01-29-2025 Hematocrit (Bld) [Volume fraction] 39.9 % 37-47 [facility] Hemoglobin measurementOrdere d By: Bubba De Anda on 01-29-2025 Hemoglobin (Bld) [Mass/Vol] 13.6 g/dL 12.0-15.0 [facility] Immature granulocytes/100 WB C Auto (Bld)Ordered By: Bubba De Anda on 01-29-2025 Immature granulocytes/100 WBC (Bld) 0.200 % 0.0-0.9 [facility] Comment on above: IG% - Immature Granu locytes (promyelocytes, myelocytes and metamyelocytes) > 1% indicates that a LEFT SHIFT is Present. L499.0042on 01-29-2025 Trop T High Sen < 6 Normal <=14 [facility] Comment on above: Performed By: #### L 499.0042 #### [facility] [address] [place], [place] [address], [address] L499.0043on 01-29-2025 Trop T High Sen Normal <=14 [facility] Comment on above: Result Comment: Canc elled via OM: Order cancelled - Patient discharged Performed By: #### L 499.0043 #### [facility] [address] [place], [address] L501.4021on 01-29-2025 Trop T High Sen < 6 Normal <=14 [facility] Comment on above: Performed By: #### L 100.0100, L500.2500, L501.4021 #### [facility] [address] [place], [address] Lymphocytes Auto (Unsp spec) [#/Vol]Ordered By: Bubba De Anda on 01-29-2025 Lymphocytes (Bld) [#/Vol] 2.35 10*3/uL 0.83-4.5 1 [facility] Lymphocytes/100 WBC Auto (Un sp spec)Ordered By: Bubba De Anda on 01-29-2025 Lymphocytes/100 WBC (Bld) 37.5 % 19-41 [facility] MCV (mean corpuscular volume ) determinationOrdered By: Bubba De Anda on 01-29-2025 MCV (RBC) [Entitic vol] 88.9 fL 81-99 [facility] Mean corpuscular hemoglobin (MCH) determinationOrdered By: Bubba De Anda on 01-29-2025 MCH (RBC) [Entitic mass] 30.3 pg 27.0-32.0 [facility] Mean corpuscular hemoglobin concentration (MCHC) determinationOrdered By: Bubba De Anda on 01-29-2025 MCHC (RBC) [Mass/Vol] 34.1 g/dL 32-36 [facility] Mean platelet volume determi nationOrdered By: Bubba De Anda on 01-29-2025 Platelet mean volume (Bld) [Entitic vol] 9.7 fL 6.2-12.0 [facility] Monocyte percentageOrdered B y: Bubba De Anda on 01-29-2025 Monocytes/100 WBC (Bld) 8.0 % 0-10 [facility] Neutrophil percentageOrdered By: Bubba De Anda on 01-29-2025 Neutrophils/100 WBC (Bld) 52.2 % 47-70 [facility] No Panel InformationOrdered By: Bubba De Anda on 01-29-2025 Troponin T High Sensitivity < 6 ng/L <14 [facility] Nucleated red blood cell per centageOrdered By: Bubba De Anda on 01-29-2025 Nucleated RBC/100 WBC (Bld) [Ratio] 0 % 0-5 [facility] Platelet countOrdered By: Stefan De Anda on 01-29-2025 Platelets (Bld) [#/Vol] 255 10*3/uL 150-450 [facility] Potassium (Unsp spec) [Mass/ Vol]Ordered By: Bubba De Anda on 01-29-2025 Potassium [Moles/Vol] 3.2 mmol/L Low 3.3-5.1 [facility] RBC Auto (Bld) [#/Vol]Ordere d By: Bubba De Anda on 01-29-2025 RBC (Bld) [#/Vol] 4.49 10*6/uL 4.2-5.4 [place] Serum creatinine measurement (mass/volume)Ordered By: Bubba De Anda on 01-29-2025 Creatinine [Mass/Vol] 0.69 mg/dL Low 0.70-1.20 [facility] Serum glucose measurement (m ass/volume)Ordered By: Bubba De Anda on 01-29-2025 Glucose [Mass/Vol] 102 mg/dL High 70-99 [facility] Serum or plasma calcium kimi urement (mass/volume)Ordered By: Bubba De Anda on 01-29-2025 Calcium [Mass/Vol] 9.4 mg/dL 7.6-11.0 [facility] Serum or plasma urea nitroge n measurement (mass/volume)Ordered By: Bubba De Anda on 01-29-2025 Urea nitrogen [Mass/Vol] 12 mg/dL 4-19 [facility] Sodium levelOrdered By: Bubba De Anda on 01-29-2025 Sodium [Moles/Vol] 140 mmol/L 133-145 [facility] Troponin T.cardiac High sens itivity method [Mass/Vol]Ordered By: Bubba De Anda on 01-29-2025 Troponin T High Sensitivity 2 Hour < 6 ng/L <14 [facility] White blood cell (WBC) count Ordered By: Bubba De Anda on 01-29-2025 WBC (Bld) [#/Vol] 6.3 10*3/uL 4.4-11.0 [facility] Absolute lymphocyte countOrd ered By: Nahomi Altman on 05-14-2023 Lymphocytes Auto (Unsp spec) [#/Vol] 1.87 10*3/uL 0.83-4.51 [facility] Basophil percentageOrdered B y: Nahomi Altman on 05-14-2023 Basophils/100 WBC (Bld) 0.5 % 0-1 [facility] Bilirubin [Mass/Vol] 1.00 mg/dL 0.20-1.00 [facility] Comment on above: For patients on eltr ombopag therapy, use of Dimension [place] TBIL is not recommended. Chloride [Moles/Vol] 108 mmol/L 98-107 [facility] Cholesterol [Mass/Vol] 153 mg/dL <200 [facility] Comment on above: <200 mg/dL Desirable 200-240 mg/dL Borderline >240 mg/dL High Risk Eosinophils/100 WBC (Bld) 2.2 % 0-5 [facility] Glucose [Mass/Vol] 81 mg/dL 74-106 [facility] Neutrophils (Bld) [#/Vol] 3.3 10*3/uL 2.0-7.7 [facility] Neutrophils/100 WBC (Bld) 57.0 % 47-70 [facility] Potassium [Moles/Vol] 4.3 mmol/L 3.5-5.1 [facility] Protein [Mass/Vol] 7.6 g/dL 6.4-8.2 [facility] Sodium [Moles/Vol] 139 mmol/L 136-145 [facility] Triglyceride [Mass/Vol] 45 mg/dL <199 [facility] Comment on above: The drugs N-Acetylcy steine and Metamizole may falsely depress this assay.Serum Triglycerides Reference Interval Normal <150 mg/dL Borderline high 150 - 199 mg/dL High 200 - 499 mg/dL Very High > or = 500 mg/dL WBC (Bld) [#/Vol] 5.8 10*3/uL 4.4-11.0 [facility] Blood erythrocytes count (nu mber/volume)Ordered By: Nahomi Altman on 05-14-2023 RBC (Bld) [#/Vol] 4.62 10*6/uL 4.2-5.4 [place] Blood hemoglobin measurement (mass/volume)Ordered By: Nahomi Altman on 05-14-2023 Hemoglobin (Bld) [Mass/Vol] 13.7 g/dL 12.0-15.0 [facility] Blood lymphocytes/100 leukoc ytesOrdered By: Nahomi Altman on 05-14-2023 Lymphocytes/100 WBC (Bld) 32.4 % 19-41 [facility] Blood monocytes/100 leukocyt esOrdered By: Nahomi lAtman on 05-14-2023 Monocytes/100 WBC (Bld) 7.6 % 0-10 [facility] Blood platelet mean volumeOr dered By: Nahomi Altman on 05-14-2023 Platelet mean volume (Bld) [Entitic vol] 10.2 fL 6.2-12.0 [facility] Determination of erythrocyte mean corpuscular volume (MCV)Ordered By: Nahomi Altman on 05-14-2023 MCV (RBC) [Entitic vol] 91.6 fL 81-99 [facility] Hematocrit Auto (Bld) [Volum e fraction]Ordered By: Nahomi Altman on 05-14-2023 Hematocrit (Bld) [Volume fraction] 42.3 % 37-47 [facility] - Chemistry and C hemistry - challengeOrdered By: Nahomi Altman on 05-14-2023 ALP [Catalytic activity/Vol] 57 U/L 45-117 [facility] ALT [Catalytic activity/Vol] 21 U/L 13-56 [facility] CO2 [Moles/Vol] 25.0 mmol/L 21.0-32.0 [facility] Globulin (S) [Mass/Vol] 3.2 g/dL 2.2-4.2 [facility] Urea nitrogen/Creatinine [Mass ratio] 27.6 mg/mg 10-20 [facility] - Hematology and Cell countsOrdered By: Nahomi Altman on 05-14-2023 Erythrocyte distribution width (RBC) [Entitic vol] 40.7 fL 35.1-43.9 [facility] Erythrocyte distribution width (RBC) [Ratio] 12.4 % 11.6-14.6 [facility] Immature granulocytes/100 WBC (Bld) 0.300 % 0.0-0.9 [facility] Comment on above: IG% - Immature Granu locytes (promyelocytes, myelocytes and metamyelocytes) > 1% indicates that a LEFT SHIFT is Present. MCH (RBC) [Entitic mass] 29.7 pg 27.0-32.0 [facility] Nucleated RBC/100 WBC (Bld) [Ratio] 0 % 0-5 [facility] MCHC Auto (RBC) [Mass/Vol]Or dered By: Nahomi Altman on 05-14-2023 MCHC (RBC) [Mass/Vol] 32.4 g/dL 32-36 [facility] No Panel InformationOrdered By: Nahomi Altman on 05-14-2023 C-Reactive Protein High Sensitivity 0.49 mg/L <3.00 [facility] Comment on above: Low Relative Risk of CVD <1.0 mg/L Average Relative Risk of CVD 1.0 - 3.0 mg/L High Relative Risk of CVD >3.0 mg/L Estimated GFR (MDRD) Amer 133 mL/min >60 [facility] Comment on above: GFR Calc Estimated GFR (MDRD) Non-Af Amer 110 mL/min >60 [facility] Comment on above: Non- GFR Calc Thyroid Stimulating Hormone (TSH) 1.48 uIU/mL 0.358-3.74 [facility] Platelets bldOrdered By: Aurora Altman on 05-14-2023 Platelets (Bld) [#/Vol] 254 10*3/uL 150-450 [facility] Serum or plasma albumin kimi urement (mass/volume)Ordered By: Nahomi Altman on 05-14-2023 Albumin [Mass/Vol] 4.4 g/dL 3.2-5.0 [facility] Serum or plasma albumin/glob ulin mass ratioOrdered By: Nahomi Altman on 05-14-2023 Albumin/Globulin [Mass ratio] 1.4 {ratio} 0.9-2.4 [facility] Serum or plasma calcium kimi urement (mass/volume)Ordered By: Nahomi Altman on 05-14-2023 Calcium [Mass/Vol] 9.7 mg/dL 8.5-10.1 [facility] Serum or plasma cholesterol in HDL measurement (mass/volume)Ordered By: Nahomi Altman on 05-14-2023 Cholesterol in HDL [Mass/Vol] 71 mg/dL >40 [facility] Comment on above: The drugs N-Acetylcy steine and Metamizole may falsely depress this assay. Reference Range HDL <40 mg/dL Low HDL Cholesterol HDL >or= 60 mg/dL High HDL Cholesterol Serum or plasma cholesterol in VLDL measurement (mass/volume)Ordered By: Nahomi Altman on 05-14-2023 Cholesterol in VLDL [Mass/Vol] 9 mg/dL 5-40 [facility] Serum or plasma creatinine m easurement (mass/volume)Ordered By: Nahomi Altman on 05-14-2023 Creatinine [Mass/Vol] 0.65 mg/dL 0.55-1.02 [facility] Comment on above: The validity of the calculated GFR & GFRAA in patients over 70 years has not been determined. Clinical correlation is essential. Serum or plasma low density lipoprotein (LDL) cholesterol measurement (mass/volume)Ordered By: Nahomi Altman on 05-14-2023 Cholesterol in LDL [Mass/Vol] 73 mg/dL 0-130 [facility] Serum or plasma urea nitroge n measurement (mass/volume)Ordered By: Nahomi Altman on 05-14-2023 Urea nitrogen [Mass/Vol] 18 mg/dL 7-18 [facility] Thin prep Papanicolaou smear with manual screeningOrdered By: Nahomi Altman on 05-14-2023 Thin prep Papanicolaou smear with manual screening 11 U/L 15-37 [facility] Thin prep Papanicolaou smear with manual screening 6 5-15 [facility] Whole blood hemoglobin A1c/t otal hemoglobin ratio (mass fraction)Ordered By: Nahomi Altman on 05-14-2023 HbA1c (Bld) [Mass fraction] 4.6 % 3.8-5.6 [facility] Comment on above: Normal < 5.7 % Predi abetic 5.7 - 6.4 % Diabetic >or= 6.5 % Please note range changes. Vital Signs Date Time Vital Sign Value Performing Clinician Clarence vasquez 01-29-2025 21:18-0400 Body temperature 97.8 [degF] Dr. Bubba De Anda DO Work Phone: 4([phone] [place] [address] 01-29-2025 21:18-0400 Diastolic blood pressure 77 mm[Hg] Dr. Bubba De Anda DO Work Phone: 8(681)[phone] [place] [address] 01-29-2025 21:18-0400 Heart rate 81 /min Dr. Bubba De Anda DO Work Phone: 9(222)[phone] [place] [address] 01-29-2025 21:18-0400 Respiratory rate 16 /min Dr. Bubba De Anda DO Work Phone: [phone])[phone] [address] 01-29-2025 21:18-0400 SaO2% (BldA) [Mass fraction] 100 % Dr. Bubba De Anda DO Work Phone: [phone])[phone] [place] [address] 01-29-2025 21:18-0400 Systolic blood pressure 107 mm[Hg] Dr. Bubba De Anda DO Work Phone: [facility] 01-29-2025 17:19-0400 Body height 157.[address] Bubba De Anda DO Work Phone: [facility] 01-29-2025 17:19-0400 Body mass index (BMI) [Ratio] 20.1 kg/m2 Dr. Bubba De Anda DO Work Phone: 0(101)[phone] [place] [address] 01-29-2025 17:19-0400 Body weight 49.[address] Bubba De Anda DO Work Phone: [facility] Encounters Encounter Date Encounter Type Care Provider Facility Start: 02-09-2025 End: 02-09-[address] Bubba De Anda DO Work Phone: [facility] Work Phone: Start: 02-09-2025 End: 02-09-2025 Patient encounter procedure Vandana Graysonner TURN OUT-[facility] -[facility], [place] Work Phone: Start: 02-09-2025 End: 02-09-2025 ambulatory Vandana Overton TURN OUT Facility:[facility] Start: 01-29-2025 End: 01-29-2025 Emergency department patient visit Dr. Bubba De Anda DO Work Phone: -Emergency Department Work Phone: Start: 05-14-2023 End: 05-14-2023 ambulatory [facility] Work Phone: Start: 05-14-2023 End: 05-14-2023 Patient encounter procedure [facility] Procedures Date Procedure Procedure Detail Performing Clinician Start: 01-29-2025 Plain chest X-ray Dr. Dayton De Anda DO Work Phone: Plan of Treatment Date Care Activity Detail Author Start: 01-29-2025 [facility] Start: 01-29-2025 [facility] Patient Education ED Chest Pain, Uncertain Cause [facility] Work Phone: Patient referral [facility] Work Phone: Payers Date Payer Category Payer Self-pay 2025 Unknown [id number] Unknown ANTHEM [id number] Unknown [id number] Unknown [id number] Social History Date Type Detail [facility] Work Phone: Start: 1990 Sex Assigned At Female [facility] Start: 01-29-2025 Tobacco smoking stat [facility] Never smoked tobacco (finding) [facility] Start: 01-29-2025 End: 02-12-2025 Sex Female (finding) [facility] Mental Status Date Assessment Result Facility 01-29-2025 Cognitive function Voice/Name [facility] Work Phone: Radiology Diagnostic study note 01-29-2025 Note Date & Type Note Facility 01-29-2025 Radiology Diagnostic study note [facility] Imaging Services [address] [place] [address] Chest 1 View (Portable) MR#: [id number] Acct: [id number] Name: MEAGAN CARLTON Rep #: [id number] : 1990 F 34 From: Debbie Bella MD PCP: Dr. Pamella Bowman MD Status: REG ER Study:Chest 1 View (Portable) Date of Exam: 01/29/25 Exam# [id number] Ordering Dr: Bubba De Anda DO PROCEDURE: CHEST 1 VIEW (PORTABLE) 01/29/2025 REASON FOR EXAM: CHEST PAIN TECHNIQUE: Frontal view of the chest. COMPARISON: None FINDINGS: Hardware: None Heart: The heart size is normal. Lungs: No significant change in the appearance of the lungs. Bones: The bones are unremarkable. Other: RAD/Chest 1 View (Portable) IMPRESSION: No Acute Findings. Reading Location: [facility] CC: Dr. Pamella Bowman MD; Dr. Bubba De Anda DO ~ Animal Taxonomist: Signed [facility] Evaluation note Note Date & Type Note Facility Evaluation note No assessment information availa ble [facility] Work Phone: Reason for referral (narrative) Note Date & Type Note Facility Reason for referral (narrative) No reason for referral information available [facility] Work Phone: Chief Complaint and Reason for Visit Chief Complaint Admit Date CP January 29, 2025 5:1 8pm Chief Complaint Admit Date CP January 29, 2025 5:1 8pm FASTING February 09, 2025 8:3 8am Advance Directives No Advanced Directives Records Found Advance Directive Response Recorded Date/ Time Living Will No January 29, 2025 5:36pm Do you have a Healthcare Power of Distribution Agent? No January 29, 2025 5:36pm Summary Purpose Family History No Family History Records Found Additional Source Comments Care Teams (unrecognized sec tion and content) Team Status: Active Member Role Status Dates Nahomi Altman DO Primary Care Provider Active Team Status: Inactive Member Role Status Dates Nahomi Altman DO Primary Care Provider, Attending Provider Active Team Status: Active Member Role Status Dates Pamella Bowman MD Primary Care Provider Active Team Status: Inactive Member Role Status Dates Dr. Bubba De Anda DO Emergency Provider Active Start: January 29, 2025 End: January 29, 2025 Pamella Bowman MD Primary Care Provider Active St art: January 29, 2025 End: January 29, 2025 Team Status: Inactive Member Role Status Dates Dr. Bubba De Anda DO Attending Provider Active Start: January 29, 2025 End: January 29, 2025 Dr. Bubba De Anda DO Emergency Provider Active Start: January 29, 2025 End: January 29, 2025 Pamella Bowman MD Primary Care Provider Active St art: January 29, 2025 End: January 29, 2025 Team Status: Inactive Member Role Status Dates Pamella Bowman MD Primary Care Provider Active St art: February 09, 2025 End: February 09, 2025 Vandana Overton NP, NP-Marcio Attending Provider Active S tart: February 09, 2025 End: February 09, 2025 Vandana Overton NP, NP-Marcio Referring Provider Active S tart: February 09, 2025 End: February 09, 2025 Goals (unrecognized section and content) Goals may be documented in a n alternate sectionGoals may be documented in an alternate sectionGoals may be documented in an alternate section INFORMATION SOURCE (unrecogn ized section and content) DATE CREATED AUTHOR 06/17/2025 [facility] FOR RECORDS PERTAINING TO PATIENTS WHO ARE OR HAVE BEEN ENROLLED IN A CHEMICAL DEPENDENCY/SUBSTANCEABUSE PROGRAM, SOME INFORMATION MAY BE OMITTED. This clinical summary was aggregated from multiple sources. Caution should be exercised in using it in the provision of clinical care. This summary normalizes information from multiple sources, and as a consequence, information in this document may materially change the coding, format and clinical context of patient data. In addition, data may be omitted in some cases. CLINICAL DECISIONS SHOULD BE BASED ON THE PRIMARY CLINICAL RECORDS. [facility] provides no warranty or guarantee of the accuracy or completeness of information in this document.
[2025-10-23 13:08] LABS: HPV APTIMA, High Risk Negative (Negative)
== END | disposition home or self-care (01) ==
LOC: LABSPEC 12:02
PROVIDERS: PCP Family Medicine; Visit Provider Nurse Practitioner Family
DX: Z12.4 Encounter for screening for malignant neoplasm of cervix (principal)
CPT/HCPCS: 87624; 88175; G0145